=== PATIENT | male | born 1995 | race Hispanic/Latino ===

== ENCOUNTER 2018-08-11 09:30 | Emergency (ER) | payer OTHER ==
[2018-08-11 10:14] VITALS: BP 102/54
--- NOTE | 2018-08-11 11:29 | Ultrasound Report ---
PROCEDURE: US TESTICULAR DOPPLER COMP TECHNIQUE: Real-time irving-scale and color flow Doppler sonography in multiple planes of the scrotum, testicles, and epididymides was performed. Velocity spectral waveform analysis and color Doppler garry ging of the arterial inflow and venous outflow of the testicles was performed with image documentatio n. HISTORY: TESTICULAR PAIN COMPARISONS: None . FINDINGS: RIGHT TESTICLE: Size: 4.6 x 2.4 x 2.9 cm . Appearance: Normal size and echotexture . Arterial blood flow: Normal spectral waveforms, flow velocities and color flow images.. Venous blood flow: Normal spectral waveforms and color flow images. Right epididymis: Normal size and echotexture . Hydrocele: None . LEFT TESTICLE Size: 4.6 x 2 x 3.6 cm . Appearance: Normal size and echotexture . Arterial blood flow: Normal spectral waveforms, flow velocities and color flow images.. Venous blood flow: Normal spectral waveforms and color flow images. Left epididymis: Normal size and echotexture . Hydrocele: Trace . IMPRESSION: Trace left hydrocele. Otherwise normal sonographic appearance of the bilateral testicles . This document is electronically signed by Aide Caballero MD., August 11 2018 11:27:06 AM ET
[2018-08-11 12:11] LABS: Bilirubin,Urine NEG (Negative); Blood,Urine SM (Negative); Color,Urine Yellow (Yellow); Mucus,Urine FEW /HPF; Protein,Urine <15 mg/dL mg/dL (Negative)
--- NOTE | 2018-08-11 12:15 | Emergency Department Report ---
ED Male HPI - General Chief complaint: Urogenital-Male Stated complaint: ABD PAIN Time Seen by Provider: 08/11/18 11:12 Source: patient Mode of arrival: Ambulatory Limitations: No Limitations - History of Present Illness Initial comments: 22-year-old male presents to ED with complaint of testicular pain. Patient states he was hit in the groin area by a door as it swung open. Pt initially states this happened 3 weeks ago, then he states it was 2 weeks ago, finally pt states "well it was about a week and a half ago." Pt reports purple bruising is present to his penis. Patient was seen by physician at a clinic a few days ago. Outpt ultrasound was ordered for next week, but pt states he cannot wait that long. Denies nausea/vomiting. Currently eating Doritos chips. Complaint: testicle pain, genital injury -: unknown (pt has reported anywhere from 10 days to 3 wks ago) Location: penis, left testicle Severity: mild Quality: aching Consistency: intermittent Improves with: none Worsens with: palpation denies: swelling, nausea/vomiting - Related Data Previous Rx's Medication Instructions Recorded Last Taken Type Naproxen [Naprosyn] 500 mg PO BID #20 tablet 08/11/18 Unknown Rx traMADol [Ultram] 50 mg PO Q6HR PRN #7 tablet 08/11/18 Unknown Rx Allergies Allergy/AdvReac Type Severity Reaction Status Date / Time No Known Allergies Allergy Unverified 08/11/18 09:52 ED Review of Systems ROS: Stated complaint: ABD PAIN Other details as noted in HPI Comment: All other systems reviewed and negative Constitutional: denies: chills, fever Gastrointestinal: denies: nausea, vomiting Genitourinary: testicular pain ED Past Medical Hx - Past Medical History Previous Medical History?: No - Surgical History Past Surgical History?: No - Social History Smoking Status: Never Smoker Substance Use Type: Marijuana - Medications Home Medications: Home Medications Medication Instructions Recorded Confirmed Last Taken Type Naproxen [Naprosyn] 500 mg PO BID #20 tablet 08/11/18 Unknown Rx traMADol [Ultram] 50 mg PO Q6HR PRN #7 tablet 08/11/18 Unknown Rx ED Physical Exam - General Limitations: No Limitations General appearance: alert, in no apparent distress - Head Head exam: Present: atraumatic, normocephalic - Eye Eye exam: Present: normal appearance - ENT ENT exam: Present: mucous membranes moist - Neck Neck exam: Present: normal inspection - Respiratory Respiratory exam: Present: normal lung sounds bilaterally. Absent: respiratory distress - Cardiovascular Cardiovascular Exam: Present: regular rate, normal rhythm - GI/Abdominal GI/Abdominal exam: Present: soft. Absent: distended, tenderness - exam: Present: normal inspection, testicular tenderness (mild left testicular tenderness, no swelling present), vertical testicular lie, other (no bruising or ecchymosis present). Absent: scrotal swelling - Extremities Exam Extremities exam: Present: normal inspection - Neurological Exam Neurological exam: Present: alert, oriented X3 - Psychiatric Psychiatric exam: Present: normal affect, normal mood - Skin Skin exam: Present: warm, dry, intact, normal color. Absent: rash ED Course Vital Signs 08/11/18 10:12 Temperature 98.5 F Pulse Rate 60 Respiratory 16 Rate Blood Pressure 102/54 [Left] O2 Sat by Pulse 99 Oximetry ED Medical Decision Making - Radiology Data Radiology results: report reviewed, image reviewed - Medical Decision Making - groin pain s/p door to groin - timing unclear, at least 10 days ago, possibly 3 weeks - mild abdominal pain, nontender on exam, eating in exam room - exam unremarkable, normal appearance, vertical testicular lie, no swelling, no ecchymosis - US normal - outpt f/u advised - return precautions given - Differential Diagnosis contusion, torsion Critical care attestation.: If time is entered above; I have spent that time in minutes in the direct care of this critically ill patient, excluding procedure time. ED Disposition Clinical Impression: Injury of groin Disposition: - TO HOME OR SELFCARE Is pt being admited?: No Condition: Stable Instructions: Groin Pain (ED) Prescriptions: Naproxen [Naprosyn] 500 mg PO BID #20 tablet traMADol [Ultram] 50 mg PO Q6HR PRN #7 tablet PRN Reason: Pain Referrals: SHIREEN SCHMIDT MD [Primary Care Provider] - 3-5 Days SLIME HARRIS MD [Staff Physician] - as needed Time of Disposition: 12:17
== END 2018-08-11 12:39 | disposition home or self-care (01) ==
LOC: ED 09:30
DX: S39.91XA Unspecified injury of abdomen, initial encounter (principal); F12.10 Cannabis abuse, uncomplicated; W22.01XA Walked into wall, initial encounter; Y93.89 Activity, other specified; Y92.89 Other specified places as the place of occurrence of the external cause; Y99.8 Other external cause status
CPT/HCPCS: 81001; 93975